=== PATIENT | female | born 1985 | race Caucasian/White ===

== ENCOUNTER → 2024-10-03 18:33 | Outpatient (REF) | payer BC, SELFPAY | LOC: PAVMRI 18:33 | PROVIDERS: ATTENDING PHYSICIAN Orthopaedic Surgery; FAMILY PHYSICIAN Internal Medicine | DX: M25.561 Pain in right knee (principal) | CPT/HCPCS: 73721 ==

== ENCOUNTER → 2024-12-16 17:38 | Outpatient (REF) | payer BC, SELFPAY | LOC: WDC 17:38 | PROVIDERS: ATTENDING PHYSICIAN Internal Medicine | DX: Z12.31 Encounter for screening mammogram for malignant neoplasm of breast (principal) | CPT/HCPCS: 77063; 77067 ==

== ENCOUNTER → 2024-12-25 09:16 | Outpatient (REF) | payer BC, SELFPAY | LOC: WDC 09:16 | PROVIDERS: ATTENDING PHYSICIAN Internal Medicine | DX: R92.8 Other abnormal and inconclusive findings on diagnostic imaging of breast (principal) | CPT/HCPCS: 76642 ==

== ENCOUNTER → 2025-04-09 12:41 | Outpatient (REF) | payer BC, SELFPAY ==
[2025-04-09 13:50] LABS: Hematocrit 34.2 % (37.0-47.0); Hemoglobin 10.5 g/dL (12.0-16.0); Mean Corp Hgb Conc. 30.7 g/dL (33.0-37.0); Mean Corpuscular Volume 94.0 fL (81.0-99.0); Nucleated Red Blood Cells % 0 %; Platelet Count 164 10^3/uL (130-400); Red Cell Dist. Width 13.4 % (11.5-14.5)
== END ==
LOC: REG 12:41
PROVIDERS: ATTENDING PHYSICIAN Specialist; FAMILY PHYSICIAN Internal Medicine
DX: O9A.113 Malignant neoplasm complicating pregnancy, third trimester (principal); C83.00 Small cell B-cell lymphoma, unspecified site; Z3A.28 28 weeks gestation of pregnancy
CPT/HCPCS: 36415; 85025

== ENCOUNTER → 2025-04-14 09:40 | Outpatient (REF) | payer BC, SELFPAY ==
[2025-04-14 10:45] LABS: Hematocrit 36.5 % (37.0-47.0); Hemoglobin 11.2 g/dL (12.0-16.0); Mean Corp Hgb Conc. 30.7 g/dL (33.0-37.0); Mean Corpuscular Volume 92.4 fL (81.0-99.0); Platelet Count 182 10^3/uL (130-400); Red Cell Dist. Width 13.6 % (11.5-14.5)
[2025-04-14 11:20] LABS: Nucleated Red Blood Cells % 0 %; Reticulocyte Count 1.3 % (0.4-2.8)
[2025-04-14 11:31] LABS: ALT (SGPT) 15 U/L (0-35); AST (SGOT) 21 U/L (14-36); Albumin 4.6 g/dl (3.5-5.0); Alkaline Phosphatase 46 U/L (38-126); Blood Urea Nitrogen 16 mg/dl (7-17); Calcium 9.5 mg/dl (8.4-10.2); Carbon Dioxide 24 mmol/L (22-30); Chloride 107 mmol/L (98-107); Glucose 87 mg/dl (70-99); Iron 92 ug/dl (37-170); LDH 192 U/L (120-246); Potassium 4.7 mmol/L (3.5-5.1); Sodium 138 mmol/L (135-145); Total Protein 7.1 g/dl (6.3-8.2); eGFR > 60.00
[2025-04-14 11:41] LABS: Total Iron Binding Capacity 283 ug/dl (265-497)
[2025-04-14 11:59] LABS: TSH 1.07 uIU/ml (0.47-4.68)
[2025-04-14 12:03] LABS: Ferritin 37.2 ng/ml (6.24-137)
[2025-04-14 12:34] LABS: Folate 17.2 ng/ml (2.76-20); Vitamin B12 765 pg/ml (239-931)
[2025-04-16 04:39] LABS: Transferrin 218 mg/dL (200-360)
== END ==
LOC: REG 09:40
PROVIDERS: ATTENDING PHYSICIAN Specialist
DX: O9A.113 Malignant neoplasm complicating pregnancy, third trimester (principal); C83.00 Small cell B-cell lymphoma, unspecified site; Z3A.28 28 weeks gestation of pregnancy
CPT/HCPCS: 36415; 80053; 82607; 82728; 82746; 82784; 83540; 83550; 83615; 84443; 84466; 85025; 85045

== ENCOUNTER → 2025-04-18 13:55 | Outpatient (REF) | payer BC, SELFPAY | LOC: RAD 13:55 | PROVIDERS: ATTENDING PHYSICIAN Specialist; FAMILY PHYSICIAN Internal Medicine | DX: O9A.113 Malignant neoplasm complicating pregnancy, third trimester (principal); C83.00 Small cell B-cell lymphoma, unspecified site | CPT/HCPCS: 70491; 71260; 74177; Q9967 ==

== ENCOUNTER → 2025-06-13 09:34 | Outpatient (REF) | payer BC, SELFPAY ==
[2025-06-13 11:23] LABS: Hematocrit 37.1 % (37.0-47.0); Hemoglobin 11.2 g/dL (12.0-16.0); Mean Corp Hgb Conc. 30.2 g/dL (33.0-37.0); Mean Corpuscular Volume 93.5 fL (81.0-99.0); Nucleated Red Blood Cells % 0 %; Platelet Count 176 10^3/uL (130-400); Red Cell Dist. Width 13.9 % (11.5-14.5)
[2025-06-13 11:57] LABS: ALT (SGPT) 15 U/L (0-35); AST (SGOT) 20 U/L (14-36); Albumin 4.6 g/dl (3.5-5.0); Alkaline Phosphatase 43 U/L (38-126); Blood Urea Nitrogen 15 mg/dl (7-17); Calcium 9.5 mg/dl (8.4-10.2); Carbon Dioxide 27 mmol/L (22-30); Chloride 107 mmol/L (98-107); Glucose 77 mg/dl (70-99); LDH 197 U/L (120-246); Potassium 4.3 mmol/L (3.5-5.1); Sodium 139 mmol/L (135-145); Total Protein 7.0 g/dl (6.3-8.2); Uric Acid 3.6 mg/dl (2.5-6.2); eGFR > 60.00
[2025-06-13 12:26] LABS: Hepatitis B Surface Antigen Negative (Negative)
[2025-06-15 08:56] LABS: Source Blood
== END ==
LOC: REG 09:34
PROVIDERS: ATTENDING PHYSICIAN Student in an Organized Health Care Education/Training Program; FAMILY PHYSICIAN Internal Medicine
DX: C91.10 Chronic lymphocytic leukemia of B-cell type not having achieved remission (principal)
CPT/HCPCS: 36415; 80053; 82784; 83615; 84550; 85025; 86704; 86706; 87340; 87389

== ENCOUNTER → 2025-06-30 09:36 | Outpatient (REF) | payer BC, SELFPAY ==
[2025-06-30 11:23] LABS: HCG, Serum Qualitative Screen Negative
[2025-06-30 11:29] LABS: Magnesium 2.2 mg/dl (1.6-2.3)
[2025-06-30 11:44] LABS: Hematocrit 33.7 % (37.0-47.0); Hemoglobin 9.8 g/dL (12.0-16.0); Mean Corp Hgb Conc. 29.1 g/dL (33.0-37.0); Mean Corpuscular Volume 94.9 fL (81.0-99.0); Platelet Count 171 10^3/uL (130-400); Red Cell Dist. Width 13.6 % (11.5-14.5)
[2025-06-30 11:46] LABS: LDH 180 U/L (120-246); Uric Acid 3.2 mg/dl (2.5-6.2)
[2025-06-30 12:41] LABS: Nucleated Red Blood Cells % 0 %
== END ==
LOC: REG 09:36
PROVIDERS: ATTENDING PHYSICIAN Nurse Practitioner; FAMILY PHYSICIAN Internal Medicine; REFERRING PHYSICIAN Internal Medicine Hematology & Oncology
DX: C91.10 Chronic lymphocytic leukemia of B-cell type not having achieved remission (principal)
CPT/HCPCS: 36415; 83615; 83735; 84100; 84550; 84703; 85025

== ENCOUNTER → 2025-07-07 09:22 | Outpatient (REF) | payer BC, SELFPAY ==
[2025-07-07 10:45] LABS: Hematocrit 31.4 % (37.0-47.0); Hemoglobin 10.5 g/dL (12.0-16.0); Mean Corp Hgb Conc. 33.4 g/dL (33.0-37.0); Mean Corpuscular Volume 89.2 fL (81.0-99.0); Nucleated Red Blood Cells % 0 %; Red Cell Dist. Width 13.6 % (11.5-14.5)
[2025-07-07 11:11] LABS: ALT (SGPT) 18 U/L (0-35); AST (SGOT) 28 U/L (14-36); Albumin 4.3 g/dl (3.5-5.0); Alkaline Phosphatase 45 U/L (38-126); Blood Urea Nitrogen 13 mg/dl (7-17); Calcium 9.3 mg/dl (8.4-10.2); Carbon Dioxide 25 mmol/L (22-30); Chloride 105 mmol/L (98-107); Glucose 90 mg/dl (70-99); LDH 344 U/L (120-246); Magnesium 2.3 mg/dl (1.6-2.3); Potassium 4.5 mmol/L (3.5-5.1); Sodium 135 mmol/L (135-145); Total Protein 6.8 g/dl (6.3-8.2); Uric Acid 2.3 mg/dl (2.5-6.2); eGFR > 60.00
[2025-07-07 11:29] LABS: Platelet Count 92 10^3/uL (130-400)
== END ==
LOC: REG 09:22
PROVIDERS: ATTENDING PHYSICIAN Nurse Practitioner; FAMILY PHYSICIAN Internal Medicine
DX: C91.10 Chronic lymphocytic leukemia of B-cell type not having achieved remission (principal)
CPT/HCPCS: 36415; 80053; 83615; 83735; 84100; 84550; 85025

== ENCOUNTER → 2025-07-14 10:01 | Outpatient (REF) | payer BC, SELFPAY ==
[2025-07-14 11:19] LABS: Hematocrit 31.0 % (37.0-47.0); Hemoglobin 10.2 g/dL (12.0-16.0); Mean Corp Hgb Conc. 32.9 g/dL (33.0-37.0); Mean Corpuscular Volume 89.6 fL (81.0-99.0); Nucleated Red Blood Cells % 0 %; Platelet Count 147 10^3/uL (130-400); Red Cell Dist. Width 13.5 % (11.5-14.5)
[2025-07-14 11:47] LABS: ALT (SGPT) 20 U/L (0-35); AST (SGOT) 26 U/L (14-36); Albumin 4.4 g/dl (3.5-5.0); Alkaline Phosphatase 38 U/L (38-126); Blood Urea Nitrogen 14 mg/dl (7-17); Calcium 9.3 mg/dl (8.4-10.2); Chloride 104 mmol/L (98-107); Glucose 89 mg/dl (70-99); LDH 263 U/L (120-246); Magnesium 2.2 mg/dl (1.6-2.3); Potassium 4.4 mmol/L (3.5-5.1); Sodium 136 mmol/L (135-145); Total Protein 6.7 g/dl (6.3-8.2); Uric Acid 2.9 mg/dl (2.5-6.2); eGFR > 60.00
[2025-07-14 11:56] LABS: Carbon Dioxide 27 mmol/L (22-30)
== END ==
LOC: REG 10:01
PROVIDERS: ATTENDING PHYSICIAN Nurse Practitioner; FAMILY PHYSICIAN Internal Medicine
DX: C91.10 Chronic lymphocytic leukemia of B-cell type not having achieved remission (principal)
CPT/HCPCS: 36415; 80053; 83615; 83735; 84100; 84550; 85025

== ENCOUNTER → 2025-09-01 10:21 | Outpatient (REF) | payer BC, SELFPAY ==
[2025-09-01 10:50] LABS: Hematocrit 33.1 % (37.0-47.0); Hemoglobin 10.6 g/dL (12.0-16.0); Mean Corp Hgb Conc. 32.0 g/dL (33.0-37.0); Mean Corpuscular Volume 88.0 fL (81.0-99.0); Nucleated Red Blood Cells % 0 %; Platelet Count 211 10^3/uL (130-400); Red Cell Dist. Width 13.2 % (11.5-14.5)
[2025-09-01 11:15] LABS: ALT (SGPT) 17 U/L (0-35); AST (SGOT) 23 U/L (14-36); Albumin 4.2 g/dl (3.5-5.0); Alkaline Phosphatase 41 U/L (38-126); Blood Urea Nitrogen 13 mg/dl (7-17); Calcium 9.1 mg/dl (8.4-10.2); Carbon Dioxide 25 mmol/L (22-30); Chloride 104 mmol/L (98-107); Glucose 90 mg/dl (70-99); Potassium 4.5 mmol/L (3.5-5.1); Sodium 136 mmol/L (135-145); Total Protein 6.6 g/dl (6.3-8.2); eGFR > 60.00
== END ==
LOC: REG 10:21
PROVIDERS: ATTENDING PHYSICIAN Student in an Organized Health Care Education/Training Program
DX: C91.10 Chronic lymphocytic leukemia of B-cell type not having achieved remission (principal)
CPT/HCPCS: 36415; 80053; 85025

== ENCOUNTER → 2025-09-03 10:18 | Outpatient (REF) | payer BC, SELFPAY ==
[2025-09-10 21:44] LABS: HPV, High Risk Not Detected; HPV, High Risk Source Cervical
== END ==
LOC: CPAP 10:18
PROVIDERS: ATTENDING PHYSICIAN Obstetrics & Gynecology
DX: Z01.419 Encounter for gynecological examination (general) (routine) without abnormal findings (principal); Z11.51 Encounter for screening for human papillomavirus (HPV)
CPT/HCPCS: 87624; G0123